=== PATIENT | female | born 1995 | race Caucasian/White ===

== ENCOUNTER 2023-05-03 09:06 | Emergency (ER) | payer BC ==
[~2023-05-03] VITALS: Ht 175.3 cm; Wt 104.3 kg
[2023-05-03 09:37] VITALS: BP 162/92
[2023-05-03] MEDS ORDERED: TOPICORT60 G1 TOP (10:02)
== END 2023-05-03 10:09 | disposition home or self-care (01) ==
LOC: ER 09:06
DX: R21 Rash and other nonspecific skin eruption (principal)
CPT/HCPCS: 99282

== ENCOUNTER → 2023-12-28 | Outpatient (CLI) | payer BC ==
[~2023-12-28] MED LIST: TOPICORT60 G1 TOP
== END | disposition home or self-care (01) ==
LOC: LAB SHORT 12:46 → LAB 12:46
DX: Z32.02 Encounter for pregnancy test, result negative (principal)
CPT/HCPCS: 84702

== ENCOUNTER → 2024-01-02 | Outpatient (CLI) | payer BC | END | disposition home or self-care (01) | LOC: LAB SHORT 11:06 → LAB 11:06 | DX: Z34.91 Encounter for supervision of normal pregnancy, unspecified, first trimester (principal) | CPT/HCPCS: 84703 ==

== ENCOUNTER → 2024-01-11 | Outpatient (CLI) | payer BC | END | disposition home or self-care (01) | LOC: LAB SHORT 11:50 → LAB 11:50 | DX: Z34.91 Encounter for supervision of normal pregnancy, unspecified, first trimester (principal) | CPT/HCPCS: 84702 ==

== ENCOUNTER → 2024-02-23 | Outpatient (CLI) | payer BC ==
[2024-02-25 13:07] LABS: APTIMA MEDIA TYPE Urine; C. TRACHOMATIS BY TMA Negative (Negative); N. GONORRHOEAE BY TMA Negative (Negative); SPECIMEN SOURCE Urine
== END ==
LOC: LAB 14:57 → LAB SHORT 14:57
PROVIDERS: Registered Nurse Community Health
DX: Z34.91 Encounter for supervision of normal pregnancy, unspecified, first trimester (principal)
CPT/HCPCS: 87491; 87591

== ENCOUNTER 2024-04-28 23:05 | Emergency (ER) | payer BC ==
[~2024-04-28] VITALS: Ht 175.3 cm; Wt 123.8 kg
[2024-04-28 23:49] LABS: BASOPHILS ABSOLUTE AUTO 0.02 K/mm3 (0.00-0.23); BASOPHILS PERCENT AUTO 0 % (0-2); EOSINOPHILS ABSOLUTE AUTO 0.01 K/mm3 (0.00-0.68); EOSINOPHILS PERCENT AUTO 0 % (0-6); Hematocrit 34.7 % (33.0-51.0); Hemoglobin 12.1 g/dL (11.5-16.0); IMMATURE GRAN ABSOLUTE AUTO 0.04 K/mm3 (0.00-0.10); IMMATURE GRAN PERCENT AUTO 0 % (0-1); LYMPHOCYTES ABSOLUTE AUTO 0.74 K/mm3 (0.84-5.20); LYMPHOCYTES PERCENT AUTO 8 % (21-46); MONOCYTES ABSOLUTE AUTO 0.67 K/mm3 (0.16-1.47); MONOCYTES PERCENT AUTO 7 % (4-13); Mean Corpuscular HGB 30.5 pg (26.0-34.0); Mean Corpuscular HGB Conc 34.9 g/dL (31.5-36.5); Mean Corpuscular Volume 87 fL (80-100); Mean Platelet Volume 9.1 fL (9.1-12.4); NEUTROPHILS ABSOLUTE AUTO 7.74 K/mm3 (1.96-9.15); NEUTROPHILS PERCENT AUTO 84 % (41-73); Platelet Count 241 K/mm3 (150-400); RDW Coefficient Variation 12.4 % (11.7-14.2); RDW Standard Deviation 39.8 fL (35.1-46.3); Red Blood Cell Count 3.97 M/mm3 (3.80-5.20); White Blood Cell Count 9.22 K/mm3 (4.00-11.30)
[2024-04-29 00:06] LABS: Albumin, Blood 2.8 g/dL (3.4-5.0); Albumin/Globulin Ratio 0.8 (0.8-1.8); Bilirubin, Total 0.3 mg/dL (0.1-1.0); Bun/Creatinine Ratio 10.1 (12.0-20.0); Creatinine, Blood 0.5 mg/dL (0.40-1.00); Globulin, Blood 3.7 g/dL (2.2-4.0); Potassium, Blood 3.5 mmol/L (3.5-5.5); Total Protein, Blood 6.5 g/dL (6.4-8.2)
[2024-04-29 03:13] LABS: Influenza A, PCR NEGATIVE (NEGATIVE); Influenza B, PCR NEGATIVE (NEGATIVE); Resp Syncytial Virus, PCR NEGATIVE (NEGATIVE); SARS-Cov-2 (COVID-19) PCR, MMC NEGATIVE (NEGATIVE)
[2024-04-29 04:45] VITALS: BP 125/75
[2024-04-29] MEDS ORDERED: NS 1,000 ML IV SCH (04:45)
[2024-04-29 05:01] LABS: Source, Urine Clean Catch
[2024-04-29 05:04] LABS: Bilirubin, Urine Neg (Neg); Blood, Urine Neg (Neg); Glucose Qualitative, Urine Neg (Neg); Ketones, Urine 4+ (Neg); Leukocyte Esterase, Urine 1+ (Neg); Nitrite, Urine Neg (Neg); Protein, Urine Neg (Neg); Specific Gravity, Urine 1.015 (1.003-1.022); Urobilinogen, Urine NORM (Normal)
[2024-04-29 05:13] LABS: Appearance, Urine Clear (Clear); Color, Urine Yellow (P-Yellow)
[2024-04-29 05:15] LABS: Amorphous Light (0-Heavy); Bacteria Many /hpf; Mucus Light (0-Heavy); Red Blood Cells, Urine Not Seen /hpf (0-2); Squamous Epithelial Cells Few /hpf (Few)
[2024-04-29] MEDS ORDERED: Cephalexin Monohydrate 500 MG Cap PO ONE (05:25)
[2024-04-29] MEDS ORDERED: CEPH500 PO (05:25)
== END 2024-04-29 05:45 | disposition home or self-care (01) ==
LOC: ER 23:05
PROVIDERS: Emergency Medicine; Student in an Organized Health Care Education/Training Program
DX: O21.9 Vomiting of pregnancy, unspecified (principal); O23.42 Unspecified infection of urinary tract in pregnancy, second trimester; Z3A.21 21 weeks gestation of pregnancy
CPT/HCPCS: 0241U; 80053; 81001; 85025; 87086; 99284; A9270; J7030

== ENCOUNTER → 2024-06-12 | Outpatient (CLI) | payer BC ==
[~2024-06-12] MED LIST changes: +CEPH500 PO
[2024-06-12 14:58] LABS: Hematocrit 36.5 % (33.0-51.0); Hemoglobin 12.1 g/dL (11.5-16.0)
== END | disposition home or self-care (01) ==
LOC: LAB 12:41 → LAB SHORT 12:41
PROVIDERS: Registered Nurse Community Health
DX: Z34.92 Encounter for supervision of normal pregnancy, unspecified, second trimester (principal)
CPT/HCPCS: 82950; 85014; 85018

== ENCOUNTER → 2024-07-17 | Outpatient (CLI) | payer BC | LOC: LAB SHORT 11:47 → LAB 11:47 | DX: D18.01 Hemangioma of skin and subcutaneous tissue (principal) | CPT/HCPCS: 88305 ==

== ENCOUNTER → 2024-08-14 | Outpatient (CLI) | payer BC | LOC: LAB SHORT 13:53 → LAB 13:53 | DX: Z34.83 Encounter for supervision of other normal pregnancy, third trimester (principal) | CPT/HCPCS: 87081; 87150 ==

== ENCOUNTER 2024-08-20 20:44 | Inpatient (IN) | payer BC ==
[~2024-08-20] VITALS: Ht 175.3 cm; Wt 130.4 kg
[2024-08-20 21:04] VITALS: BP 138/76
[2024-08-20 21:35] VITALS: BP 133/64
[2024-08-20] MEDS ORDERED: Methylergonovine Maleate 0.2MG / ML 1ML Amp IM PRN (22:30)
[2024-08-20] MEDS ORDERED: Misoprostol 200 MCG Tab BC PRN (22:30)
[2024-08-20] MEDS ORDERED: Tranexamic Acid 100 ML IV SCH (22:30)
[2024-08-20] MEDS ORDERED: Misoprostol 200 MCG Tab PR PRN (22:30)
[2024-08-20] MEDS ORDERED: OXYTOCIN/RINGER'S LACTATE 500 ML IV PRN (22:30)
[2024-08-20] MEDS ORDERED: Acetaminophen 500 MG Tab PO PRN (22:30)
[2024-08-20] MEDS ORDERED: Ondansetron HCl 2 MG / ML 2ML Vial IV PRN (22:30)
[2024-08-20] MEDS ORDERED: Carboprost Tromethamine 250 MCG/ML 1ML Amp IM PRN (22:30)
[2024-08-20] MEDS ORDERED: Lactated Ringer's 1,000 ML IV PRN (22:30)
[2024-08-20] MEDS ORDERED: Oxytocin 10 Unit / ML Vial IM PRN (22:30)
[2024-08-20] MEDS ORDERED: Calcium Carbonate 500 MG Tab Chew PO PRN (22:35)
[2024-08-20] MEDS ORDERED: METF500 PO (23:13)
[2024-08-20 23:25] LABS: BASOPHILS ABSOLUTE AUTO 0.03 K/mm3 (0.00-0.23); BASOPHILS PERCENT AUTO 0 % (0-2); EOSINOPHILS ABSOLUTE AUTO 0.06 K/mm3 (0.00-0.68); EOSINOPHILS PERCENT AUTO 1 % (0-6); Hemoglobin 13.4 g/dL (11.5-16.0); IMMATURE GRAN ABSOLUTE AUTO 0.05 K/mm3 (0.00-0.10); IMMATURE GRAN PERCENT AUTO 1 % (0-1); LYMPHOCYTES ABSOLUTE AUTO 1.87 K/mm3 (0.84-5.20); LYMPHOCYTES PERCENT AUTO 18 % (21-46); MONOCYTES ABSOLUTE AUTO 0.87 K/mm3 (0.16-1.47); MONOCYTES PERCENT AUTO 8 % (4-13); Mean Corpuscular HGB Conc 33.5 g/dL (31.5-36.5); Mean Corpuscular Volume 87 fL (80-100); Mean Platelet Volume 10.3 fL (9.1-12.4); NEUTROPHILS ABSOLUTE AUTO 7.56 K/mm3 (1.96-9.15); NEUTROPHILS PERCENT AUTO 72 % (41-73); Platelet Count 231 K/mm3 (150-400); RDW Coefficient Variation 14.3 % (11.7-14.2); RDW Standard Deviation 44.6 fL (35.1-46.3); Red Blood Cell Count 4.62 M/mm3 (3.80-5.20); White Blood Cell Count 10.44 K/mm3 (4.00-11.30)
[2024-08-20 23:33] VITALS: BP 135/82
[2024-08-21] VITALS (53 sets, daily range): BP systolic 102–160; BP diastolic 52–113
[2024-08-21] MEDS ORDERED: ePHEDrine Sulfate 50 MG/ML 1ML Injection XX PRN ×2 (00:25→08:40)
[2024-08-21] MEDS ORDERED: FentaNYL 2mcg/ml-Bup 0.1% Epd 250 ML EPI PRN ×2 (00:25→08:40)
[2024-08-21] MEDS ORDERED: Lactated Ringer's 1,000 ML IV PRN ×2 (00:30)
[2024-08-21] MEDS ORDERED: FentaNYL Citrate 50 MCG/ML 2 ML Injection IV PRN ×2 (04:15→08:40)
[2024-08-21] MEDS ORDERED: Lactated Ringer's 1,000 ML IV SCH ×2 (08:40→21:05)
[2024-08-21] MEDS ORDERED: MetFORMIN HCl 500 mg PO SCH ×2 (09:00→21:00)
[2024-08-21] MEDS ORDERED: PENICILLIN POTASSIUM IV ONE (14:00)
[2024-08-21] MEDS ORDERED: Penicillin G Potassium 5,000,000 UNITS in NS 250 ML IV ONE (14:10)
[2024-08-21] MEDS ORDERED: OXYTOCIN/RINGER'S LACTATE 500 ML IV SCH ×2 (14:45→21:00)
[2024-08-21] MEDS ORDERED: PENICILLIN POTASSIUM IV SCH (16:00)
[2024-08-21] MEDS ORDERED: Penicillin G Potassium 2,500,000 UNITS in Dextrose 5% 100 ML IV SCH (18:30)
[2024-08-21] MEDS ORDERED: Acetaminophen/Codeine 300-30 mg PO PRN (20:50)
[2024-08-21] MEDS ORDERED: Acetaminophen 325 MG TABLET PO PRN (20:55)
[2024-08-21] MEDS ORDERED: Ibuprofen 400 MG Tab PO PRN (20:55)
[2024-08-21] MEDS ORDERED: Witch Hazel/Glycerin PADS TOP PRN (20:55)
[2024-08-21] MEDS ORDERED: OxyCODONE 5 mg/Acetamin 325 mg TABLET PO PRN (20:55)
[2024-08-21] MEDS ORDERED: Docusate Sodium 100 MG Cap PO PRN (20:55)
[2024-08-21] MEDS ORDERED: Lanolin Cream TOP PRN (20:55)
[2024-08-21] MEDS ORDERED: Oxytocin 10 Unit / ML Vial IM ONE (20:55)
[2024-08-21] MEDS ORDERED: Ketorolac Tromethamine 30mg Vial IV PRN (21:00)
[2024-08-21] MEDS ORDERED: Methylergonovine Maleate 0.2MG / ML 1ML Amp IM PRN (21:00)
[2024-08-21] MEDS ORDERED: Benzocaine Topical Anesthetic Spray 60GM TOP PRN (21:00)
[2024-08-21] MEDS ORDERED: Misoprostol 200 MCG Tab PR PRN (21:00)
[2024-08-21] MEDS ORDERED: Measles/Mumps/Rubella Vaccine 0.5 ML Vial SC ONE (21:00)
[2024-08-21] MEDS ORDERED: Diphth,Pertuss(Acell),Tet Vac 0.5 ML VIAL IM ONE (21:00)
[2024-08-22] MEDS ORDERED: IBUP800 PO (00:06)
[2024-08-22 05:33] VITALS: BP 122/57
[2024-08-22 06:08] LABS: BASOPHILS ABSOLUTE AUTO 0.03 K/mm3 (0.00-0.23); BASOPHILS PERCENT AUTO 0 % (0-2); EOSINOPHILS ABSOLUTE AUTO 0.07 K/mm3 (0.00-0.68); EOSINOPHILS PERCENT AUTO 1 % (0-6); Hematocrit 37.1 % (33.0-51.0); Hemoglobin 12.1 g/dL (11.5-16.0); IMMATURE GRAN ABSOLUTE AUTO 0.09 K/mm3 (0.00-0.10); IMMATURE GRAN PERCENT AUTO 1 % (0-1); LYMPHOCYTES ABSOLUTE AUTO 1.79 K/mm3 (0.84-5.20); LYMPHOCYTES PERCENT AUTO 12 % (21-46); MONOCYTES ABSOLUTE AUTO 1.43 K/mm3 (0.16-1.47); MONOCYTES PERCENT AUTO 10 % (4-13); Mean Corpuscular HGB 28.6 pg (26.0-34.0); Mean Corpuscular HGB Conc 32.6 g/dL (31.5-36.5); Mean Corpuscular Volume 88 fL (80-100); Mean Platelet Volume 10.4 fL (9.1-12.4); NEUTROPHILS PERCENT AUTO 77 % (41-73); Platelet Count 207 K/mm3 (150-400); RDW Coefficient Variation 14.3 % (11.7-14.2); RDW Standard Deviation 45.6 fL (35.1-46.3); Red Blood Cell Count 4.23 M/mm3 (3.80-5.20); White Blood Cell Count 14.81 K/mm3 (4.00-11.30)
--- NOTE | 2024-08-22 08:14 | NUR ---
PT UP AMB IN ROOM. ASHLEY SELF AND NB CARE WELL. NO COMPLAINTS. GETTING READY TO BF NB. ASHLEY INDEPENDANTLY. WILL R/T FOR VS.
[2024-08-22 08:38] VITALS: BP 130/67
[2024-08-22] MEDS ORDERED: Prenatal Vit/FE Fumarate/FA 1 Tab PO SCH (09:00)
[2024-08-22 11:18] VITALS: BP 133/61
[2024-08-22 16:09] VITALS: BP 137/76
[2024-08-22 19:07] VITALS: BP 132/60
[2024-08-22 20:34] VITALS: BP 123/65
--- NOTE | 2024-08-22 20:48 | NUR ---
DISCHARGE DISCHARGE PACKET COMPLETED WITH PT AND SIGNIFICANT OTHER. QUESTIONS AND CONCERNS ADDRESSED AT THIS TIME. PT LEFT AMBULATORY WTIH SIGNIFICANT OTHER. PT BELONGINGS SENT WITH PT.
== END 2024-08-22 20:30 | disposition home or self-care (01) | DRG 807 ==
LOC: OBS 20:44 → BC 20:49 → OBS 22:34 → BC 08-21 21:03
PROVIDERS: ADMIT Registered Nurse Community Health
PROC: 10E0XZZ Delivery of Products of Conception, External Approach (ICD-10-PCS; principal; 2024-08-21)
PROC: 0HQ9XZZ Repair Perineum Skin, External Approach (ICD-10-PCS; 2024-08-21)
PROC: 3E0R3BZ Introduction of Anesthetic Agent into Spinal Canal, Percutaneous Approach (ICD-10-PCS; 2024-08-21)
PROC: 00HU33Z Insertion of Infusion Device into Spinal Canal, Percutaneous Approach (ICD-10-PCS; 2024-08-21)
DX: O42.02 Full-term premature rupture of membranes, onset of labor within 24 hours of rupture (principal); Z37.0 Single live birth; O24.429 Gestational diabetes mellitus in childbirth, unspecified control; Z3A.37 37 weeks gestation of pregnancy; Z79.84 Long term (current) use of oral hypoglycemic drugs; O70.0 First degree perineal laceration during delivery
CPT/HCPCS: 36415; 51702; 59025; 81003; 82947; 85025; 86850; 86900; 86901; 87210; 99214; A9270; J1885; J2405; J2540; J2590; J7050; J7120

== ENCOUNTER → 2024-10-10 | Outpatient (CLI) | payer BC ==
[~2024-10-10] MED LIST changes: +IBUP800 PO; +METF500 PO
== END ==
LOC: LAB 18:42 → LAB SHORT 18:42
DX: Z86.32 Personal history of gestational diabetes (principal)
CPT/HCPCS: 83036